=== PATIENT | female | born 1975 | race African-American/Black ===

== ENCOUNTER 2019-03-15 08:37 | Outpatient (CLI) | payer OTHER ==
--- NOTE | 2019-03-15 09:31 | XRay Report ---
RIGHT SHOULDER, 3 VIEWS INDICATION: M25.511)Pain in right shoulder. COMPARISON: None. IMPRESSION: No acute osseous or soft tissue abnormality. No significant DJD. Signer Name: Murphy Hernandez Jr, MD Signed: 03/15/2019 9:26 AM Workstation Name: [id number]
== END 2019-03-15 08:38 | disposition home or self-care (01) ==
LOC: XRAY 08:37
PROVIDERS: ATTEND Internal Medicine
DX: M25.511 Pain in right shoulder (principal)

== ENCOUNTER 2019-10-24 09:48 | Outpatient (CLI) | payer OTHER ==
--- NOTE | 2019-10-24 13:23 | XRay Report ---
RIGHT KNEE HISTORY: Pain. COMPARISON: None. TECHNIQUE: 3 views of the right knee obtained. FINDINGS: Bones: No fracture or dislocation. Joint spaces: Mild narrowing of the medial joint space and mild widening of the lateral joint space. Small medial osteophytes. Small patellofemoral osteophytes. Soft tissues: No significant abnormality. Additional findings: No joint effusion. IMPRESSION: 1. Mild osteoarthritis. Signer Name: Chino Starks MD Signed: 10/24/2019 1:19 PM Workstation Name: [id number]
== END 2019-10-24 09:49 | disposition home or self-care (01) ==
LOC: XRAY 09:48
PROVIDERS: ATTEND Nurse Practitioner Family
DX: M17.11 Unilateral primary osteoarthritis, right knee (principal)